=== PATIENT | male | born 1940 | race African-American/Black ===

== ENCOUNTER 2025-05-13 10:58 | Emergency (ER) | payer MEDICARE, OTHER ==
[~2025-05-13] VITALS: Ht 167.6 cm; Wt 69.0 kg
[2025-05-13 10:59] VITALS: O2SAT 98
[2025-05-13] MEDS: SODIUM CHLORIDE 0.9% 1,000 ML IV ONE (11:55)
[2025-05-13] MEDS: MORPHINE SULFATE 4 MG/ML INJ (FOR IV/IM USE) IV STA (11:55)
[2025-05-13] MEDS: ONDANSETRON HCL 4MG/2ML INJ IV STA (11:56)
[2025-05-13 12:03] LABS: BASOPHILS % 0.8 % (0.0-2.0); HEMATOCRIT. 39.7 % (42.0-52.0); HEMOGLOBIN. 13.3 g/dL (14.0-18.0); LYMPHOCYTES % 18.2 % (20.0-50.0); MEAN CORPUSCULAR HEMOGLOBIN 29.2 pg (28.0-32.0); MEAN CORPUSCULAR HGB CONC 33.5 g/dL (31.0-37.0); MEAN CORPUSCULAR VOLUME 87.3 fL (80.0-94.0); MEAN PLATELET VOLUME 7.9 fl (7.4-10.4); MONOCYTES % 6.3 % (2.0-8.0); NEUTROPHILS % 72.7 % (40.0-76.0); PLATELET 154 x1000/uL (130-400); RED BLOOD CELL COUNT 4.55 mill/uL (4.7-6.1); RED CELL DISTRIBUTION WIDTH 14.1 % (11.6-14.6); WHITE BLOOD COUNT 6.4 x1000/uL (4.5-11.0)
[2025-05-13 12:10] LABS: CHLORIDE 105 mEq/L (98-107); POTASSIUM 3.4 mEq/L (3.5-5.1); SODIUM 143 mEq/L (136-145)
[2025-05-13 12:11] LABS: CALCIUM 9.1 mg/dL (8.7-10.4); CARBON DIOXIDE 28 mEq/L (21-32)
[2025-05-13 12:13] LABS: PROTHROMBIN TIME 10.3 sec (9.6-11.0)
[2025-05-13 12:16] LABS: CREATININE 1.1 mg/dL (0.6-1.3); ETHANOL BLOOD < 10 mg/dL (<10); GLUCOSE 109 mg/dL (70-105); UREA NITROGEN BLOOD 11 mg/dL (9-23)
[2025-05-13 12:17] LABS: ASPARTATE AMINOTRANSFERASE 21 IU/L (<34)
[2025-05-13 12:18] LABS: ALANINE AMINOTRANSFERASE < 7 IU/L (10-49); BILIRUBIN DIRECT 0.3 mg/dL (<=3.0); BILIRUBIN TOTAL 0.8 mg/dL (0.1-1.0); PROTEIN TOTAL 6.5 g/dL (6.0-8.3)
[2025-05-13] MEDS ORDERED: IBUP-2029 MT (12:26)
[2025-05-13 13:00] VITALS: BP 117/58; PULSE 58; RESP 14; TEMP 36.7; O2SAT 98
== END 2025-05-13 13:40 | disposition home or self-care (01) ==
LOC: ER 11:18 → EDBEDREQ 11:22 → ER 13:40
DX: K40.90 Unilateral inguinal hernia, without obstruction or gangrene, not specified as recurrent (principal); R10.9 Unspecified abdominal pain; Z79.899 Other long term (current) drug therapy
CPT/HCPCS: 80076; 80048; 80320; 83605; 83690; 85025; 85610; 86850; 86900; 86901; 36415; 74176; 93005; 96360; 99284; J7030; G0480